=== PATIENT | male | born 1965 | race Caucasian/White ===

== ENCOUNTER → 2016-03-30 | Outpatient (CLI) | payer OTHER ==
[~2016-03-30] MED LIST: GADOBUTROL 10 ML VIAL IVP ONE
--- NOTE | 2016-03-30 14:25 | MR ---
MRI of the Cervical Spine (Without and with Contrast) History: Weakness. Possible transverse myelitis. Technique: Sagittal T1 and T2 sequences. Axial T2 and gradient echo sequences. After intravenous admi nistration of 6.5 mL Gadavist, post contrast sagittal and axial T1-weighted images. Findings: C2-C3: Negative. C3-C4: Negative. C4-C5: Negative. C5-C6: Negative. C6-C7: Broad-based moderate sized right paracentral and foraminal disk protrusion is present at this level, with associated right neural foraminal stenosis and slight mass effect on the ventral cervical cord, without myelomalacia. C7-T1: Negative. The cervical cord maintains normal signal intensity and enhances normally after intravenous contrast administration.. The craniocervical junction appears normal. Impression: 1. Normal MRI signal characteristics and enhancement of the cervical spinal cord. 2. Broad-based right paracentral and foraminal disk protrusion at C6-C7 with associated right neural foraminal stenosis.
--- NOTE | 2016-03-30 14:32 | MR ---
MRI of the thoracic spine, without and with contrast. HISTORY: Evaluate for transverse myelitis. TECHNIQUE: Precontrast sagittal and axial MR sequences of the thoracic spine are obtained. After intr avenous administration of 6.5 mL Gadavist, post contrast-enhanced imaging is obtained in the sagittal and axial plane. FINDINGS: There is subtle abnormal enhancement of the posterior aspect of the lower thoracic spinal c ord. Best visualized on sagittal image 6 of series 11 is focal enhancement of the posterior aspect of the thoracic cord at the T7 and T8-T10 levels. This finding would potentially support a clinical phyllis gnosis of transverse myelitis. No evidence of mass or enlargement of the thoracic spinal cord. Intervertebral disks appear intact. Marrow signal intensity alignment of the thoracic spinal column i s normal. IMPRESSION: 1. Subtle dorsal enhancement of the thoracic spinal cord at the T7 and T8-T9 levels, potentially supp orting a clinical diagnosis of transverse myelitis. No evidence of mass or disk herniation.
== END ==
LOC: FIMAGING 08:56
PROVIDERS: ATTEND Physician Assistant Medical
DX: R29.2 Abnormal reflex (principal)
CPT/HCPCS: A9585

== ENCOUNTER → 2016-04-03 | Outpatient (CLI) | payer OTHER ==
--- NOTE | 2016-04-03 21:37 | MR ---
MRI of the Brain (Without and With Contrast) Clinical Indication: Follow-up spinal cord abnormality; evaluate for evidence of intracranial demyeli nating process.. Technique: T1-weighted images were acquired axially and sagittally from the foramen magnum to the ve rtex. A sagittal T2-weighted sequence is also obtained. Axial T1-weighted, susceptibility-weighted, fast inversion-recovery, fast T2-weighted, and diffusion-weighted axial images were obtained without contrast. Following uneventful intravenous administration of 6.5 mL Gadavist contrast, axial, sagitta l and coronal T1-weighted images were performed. Findings: No masses, areas of hemorrhage or extraaxial fluid collections are identified. There are n o regions of abnormal white matter T2 hyperintensity to suggest a demyelinating process. Ventricles a nd midline structures are normal in position and appearance. Diffusion-weighted images are negative for acute ischemia. Cerebellar tonsils are in normal position. Vascular structures are normal with no rmal flow-voids seen in the superior sagittal sinus, basilar artery, and bilateral internal carotid a rteries. Postcontrast images demonstrate no enhancing lesions or abnormal leptomeningeal enhancement. Paranasal sinuses and mastoid air cells are clear. Impression: Normal MRI of the brain without and with contrast. Specifically, no abnormalities are se en to suggest an intracranial demyelinating process.
== END ==
LOC: FIMAGING 19:45
PROVIDERS: ATTEND Physician Assistant Medical
DX: G95.9 Disease of spinal cord, unspecified (principal); R20.8 Other disturbances of skin sensation; R29.2 Abnormal reflex
CPT/HCPCS: A9585

== ENCOUNTER → 2016-06-10 | Outpatient (CLI) | payer OTHER | LOC: FIMAGING 14:03 | PROVIDERS: ATTEND Psychiatry & Neurology Neurology | DX: G04.91 Myelitis, unspecified (principal); M51.34 Other intervertebral disc degeneration, thoracic region; M51.35 Other intervertebral disc degeneration, thoracolumbar region | CPT/HCPCS: A9585 ==

== ENCOUNTER → 2016-10-15 | Outpatient (CLI) | payer OTHER ==
[~2016-10-15] MED LIST changes: -GADOBUTROL 10 ML VIAL IVP ONE; +PENTAMIDINE ISETHIONATE 300MG/6ML INH SYRINGE NEB ONE
== END ==
LOC: FCP 08:07
PROVIDERS: ATTEND Family Medicine
PROC: 3E0F7GC Introduction of Other Therapeutic Substance into Respiratory Tract, Via Natural or Artificial Opening (ICD-10-PCS; principal; 2016-10-15)
DX: B59 Pneumocystosis (principal); D86.89 Sarcoidosis of other sites
CPT/HCPCS: J2545

== ENCOUNTER → 2016-11-11 | Outpatient (CLI) | payer OTHER | LOC: FCP 07:46 | PROVIDERS: ATTEND Family Medicine | DX: D86.89 Sarcoidosis of other sites (principal); T88.7XXS Unspecified adverse effect of drug or medicament, sequela ==

== ENCOUNTER → 2016-12-02 | Outpatient (CLI) | payer OTHER | LOC: FCP 07:46 | PROVIDERS: ATTEND Family Medicine | DX: B59 Pneumocystosis (principal); D86.89 Sarcoidosis of other sites | CPT/HCPCS: J2545 ==

== ENCOUNTER → 2017-01-06 | Outpatient (CLI) | payer OTHER | LOC: FCP 07:39 | PROVIDERS: ATTEND Family Medicine | DX: D86.89 Sarcoidosis of other sites (principal); T88.7XXS Unspecified adverse effect of drug or medicament, sequela | CPT/HCPCS: J2545 ==

== ENCOUNTER → 2017-02-03 | Outpatient (CLI) | payer OTHER | LOC: FCP 07:30 | PROVIDERS: ATTEND Family Medicine | PROC: 3E0F7GC Introduction of Other Therapeutic Substance into Respiratory Tract, Via Natural or Artificial Opening (ICD-10-PCS; principal; 2017-02-03) | DX: D86.89 Sarcoidosis of other sites (principal); T88.7XXS Unspecified adverse effect of drug or medicament, sequela | CPT/HCPCS: J2545 ==

== ENCOUNTER → 2017-02-24 | Outpatient (CLI) | payer OTHER | LOC: FCP 07:42 | PROVIDERS: ATTEND Family Medicine | PROC: 3E0F7GC Introduction of Other Therapeutic Substance into Respiratory Tract, Via Natural or Artificial Opening (ICD-10-PCS; principal; 2017-02-24) | DX: D86.89 Sarcoidosis of other sites (principal); T88.7XXS Unspecified adverse effect of drug or medicament, sequela | CPT/HCPCS: J2545 ==

== ENCOUNTER → 2017-04-07 | Outpatient (CLI) | payer OTHER | LOC: FCP 07:52 | PROVIDERS: ATTEND Family Medicine | DX: Z79.899 Other long term (current) drug therapy (principal) | CPT/HCPCS: J2545 ==

== ENCOUNTER → 2017-05-05 | Outpatient (CLI) | payer OTHER | LOC: FCP 08:01 | PROVIDERS: ATTEND Family Medicine | PROC: 3E0F7GC Introduction of Other Therapeutic Substance into Respiratory Tract, Via Natural or Artificial Opening (ICD-10-PCS; principal; 2017-05-05) | DX: D86.89 Sarcoidosis of other sites (principal) | CPT/HCPCS: J2545 ==

== ENCOUNTER → 2017-06-09 | Outpatient (CLI) | payer OTHER | LOC: FCP 08:08 | PROVIDERS: ATTEND Family Medicine | DX: D86.89 Sarcoidosis of other sites (principal) | CPT/HCPCS: J2545 ==

== ENCOUNTER → 2017-06-30 | Outpatient (CLI) | payer OTHER | LOC: FCP 08:15 | PROVIDERS: ATTEND Family Medicine | PROC: 3E0F7GC Introduction of Other Therapeutic Substance into Respiratory Tract, Via Natural or Artificial Opening (ICD-10-PCS; principal; 2017-06-30) | DX: D86.89 Sarcoidosis of other sites (principal) | CPT/HCPCS: J2545 ==

== ENCOUNTER → 2017-08-04 | Outpatient (CLI) | payer OTHER | LOC: FCP 07:30 | PROVIDERS: ATTEND Family Medicine | PROC: 3E0F7GC Introduction of Other Therapeutic Substance into Respiratory Tract, Via Natural or Artificial Opening (ICD-10-PCS; principal; 2017-08-04) | DX: D86.89 Sarcoidosis of other sites (principal) | CPT/HCPCS: J2545 ==